=== PATIENT | female | born 1985 | race Caucasian/White ===

== ENCOUNTER 2019-04-22 14:15 | Emergency (ER) | payer SELFPAY ==
[~2019-04-22] VITALS: Ht 160 cm; Wt 59.0 kg
[~2019-04-22 14:15] MED LIST: ACET500; AMOX500 PO; Bacid1 EACH PO; Bactrim Ds Tab1 EACH PO; CALCA500CH PO; CIPR500 PO; CYCL10 PO; Colace100 MG PO; GABA300 PO; GABA400 PO; Gas-X80 MG PO; HYDACE5 PO; HYDR1TAB94 PO; IBUP800 PO; LEVE500 PO; METPRE4DP PO; MULVITMINE PO; NAPR500 PO; Naprosyn500 MG PO; Norco 10-325 T1 EACH PO; Norco 5-325 Ta1 EACH PO; ONDA4ODT MM; OXYACE5T PO; PRENATAL CAPLE1 EACH PO; PROM25 PO; Percocet 5-3251 EACH PO; RANI150; RXIBUP800 PO; Roxicodone5 MG PO; SACC250C PO; SULI150 PO; TOPI25 PO; Zofran Odt4 MG SL
[2019-04-22] MEDS ORDERED: CEPH500 PO (15:03)
[2019-04-22] MEDS ORDERED: Bactrim Ds Tab1 EACH PO (15:03)
== END 2019-04-22 15:27 | disposition home or self-care (01) ==
LOC: ER 14:15
DX: L03.115 Cellulitis of right lower limb (principal); Z79.899 Other long term (current) drug therapy; F17.210 Nicotine dependence, cigarettes, uncomplicated
CPT/HCPCS: 99282

== ENCOUNTER 2019-09-20 06:20 | Emergency (ER) | payer OTHER ==
[~2019-09-20] VITALS: Ht 160 cm; Wt 83.9 kg
[~2019-09-20 06:20] MED LIST changes: +CEPH500 PO
[2019-09-20] MEDS ORDERED: LEVE500 (07:03)
[2019-09-20] MEDS ORDERED: IBUP600 PO (08:10)
== END 2019-09-20 08:15 | disposition home or self-care (01) ==
LOC: ER 06:20
DX: G40.901 Epilepsy, unspecified, not intractable, with status epilepticus (principal); S46.012A Strain of muscle(s) and tendon(s) of the rotator cuff of left shoulder, initial encounter; F17.210 Nicotine dependence, cigarettes, uncomplicated; X50.1XXA Overexertion from prolonged static or awkward postures, initial encounter
CPT/HCPCS: 73030; 73090; 99283-25; A9270-GY

== ENCOUNTER → 2020-03-26 | Outpatient (CLI) | payer OTHER ==
[~2020-03-26] MED LIST changes: +IBUP600 PO; +LEVE500
== END | disposition home or self-care (01) ==
LOC: LAB 10:00 → LAB SHORT 10:00
DX: N30.01 Acute cystitis with hematuria (principal)
CPT/HCPCS: 87077; 87086; 87186

== ENCOUNTER 2020-05-16 14:54 | Emergency (ER) | payer OTHER ==
[~2020-05-16] VITALS: Ht 160 cm; Wt 77.1 kg
== END 2020-05-16 17:50 | disposition left against medical advice (07) ==
LOC: ER 14:54
DX: Z53.21 Procedure and treatment not carried out due to patient leaving prior to being seen by health care provider (principal)

== ENCOUNTER 2020-06-04 12:28 | Emergency (ER) | payer OTHER ==
[~2020-06-04] VITALS: Ht 160 cm; Wt 77.1 kg
[2020-06-04] MEDS ORDERED: IBUP800 PO (13:31)
[2020-06-04] MEDS ORDERED: OXYACE7.5T PO (13:31)
[2020-06-04] MEDS ORDERED: CRUTCH2 XX (13:32)
== END 2020-06-04 13:50 | disposition home or self-care (01) ==
LOC: ER 12:28
DX: S92.351A Displaced fracture of fifth metatarsal bone, right foot, initial encounter for closed fracture (principal); F17.210 Nicotine dependence, cigarettes, uncomplicated; Z79.899 Other long term (current) drug therapy; W10.9XXA Fall (on) (from) unspecified stairs and steps, initial encounter
CPT/HCPCS: 29515; 73610; 73630; 99283-25

== ENCOUNTER 2020-09-14 12:04 | Emergency (ER) | payer OTHER ==
[~2020-09-14] VITALS: Ht 160 cm; Wt 86.2 kg
[~2020-09-14 12:04] MED LIST changes: +CRUTCH2 XX; +OXYACE7.5T PO
[2020-09-14] MEDS ORDERED: IBUP400 PO (14:31)
[2020-09-14] MEDS ORDERED: HYDR1TAB94 PO (14:31)
== END 2020-09-14 14:50 | disposition home or self-care (01) ==
LOC: ER 12:04
DX: M25.561 Pain in right knee (principal)
CPT/HCPCS: 29505; 73564; 96372-59; 99283-25; J1885

== ENCOUNTER 2022-11-13 16:32 | Emergency (ER) | payer OTHER ==
[~2022-11-13] VITALS: Ht 160 cm; Wt 77.1 kg
[~2022-11-13 16:32] MED LIST changes: +IBUP400 PO
[2022-11-13 17:43] LABS: BASOPHILS ABSOLUTE AUTO 0.06 K/mm3 (0.00-0.23); BASOPHILS PERCENT AUTO 1 % (0-2); EOSINOPHILS ABSOLUTE AUTO 0.01 K/mm3 (0.00-0.68); EOSINOPHILS PERCENT AUTO 0 % (0-6); Hematocrit 42.4 % (33.0-51.0); IMMATURE GRAN ABSOLUTE AUTO 0.02 K/mm3 (0.00-0.10); IMMATURE GRAN PERCENT AUTO 0 % (0-1); LYMPHOCYTES ABSOLUTE AUTO 1.74 K/mm3 (0.84-5.20); LYMPHOCYTES PERCENT AUTO 29 % (21-46); MONOCYTES ABSOLUTE AUTO 0.33 K/mm3 (0.16-1.47); MONOCYTES PERCENT AUTO 5 % (4-13); Mean Corpuscular Volume 85 fL (80-100); Mean Platelet Volume 8.4 fL (9.1-12.4); NEUTROPHILS ABSOLUTE AUTO 3.91 K/mm3 (1.96-9.15); NEUTROPHILS PERCENT AUTO 64 % (41-73); Platelet Count 276 K/mm3 (150-400); RDW Coefficient Variation 11.9 % (11.7-14.2); RDW Standard Deviation 36.4 fL (35.1-46.3); White Blood Cell Count 6.07 K/mm3 (4.00-11.30)
[2022-11-13 18:11] LABS: Albumin, Blood 3.8 g/dL (3.4-5.0); Albumin/Globulin Ratio 0.8 (0.8-1.8); Bilirubin, Total 0.7 mg/dL (0.1-1.0); Bun/Creatinine Ratio 12.8 (12.0-20.0); Creatinine, Blood 0.78 mg/dL (0.40-1.00); Globulin, Blood 4.6 g/dL (2.2-4.0); Total Protein, Blood 8.4 g/dL (6.4-8.2)
[2022-11-13 20:58] VITALS: BP 101/71
[2022-11-13] MEDS ORDERED: AMOX500 PO (21:04)
== END 2022-11-13 21:22 | disposition home or self-care (01) ==
LOC: ER 16:32
PROVIDERS: Physician Assistant
DX: L03.211 Cellulitis of face (principal); R60.0 Localized edema; F17.210 Nicotine dependence, cigarettes, uncomplicated; Z79.899 Other long term (current) drug therapy
CPT/HCPCS: 71046; 80053; 83735; 83880; 84145; 85025; 93970; A9270

== ENCOUNTER 2024-03-18 20:16 | Inpatient (IN) | payer OTHER ==
[~2024-03-18] VITALS: Ht 160 cm; Wt 78.4 kg
[~2024-03-18 20:16] MED LIST changes: +HYDROCODONE-AC1 EA10 PO
[2024-03-19] VITALS (14 sets, daily range): BP systolic 111–133; BP diastolic 75–96
[2024-03-19] MEDS ORDERED: NS 1,000 ML IV SCH (01:50)
[2024-03-19] MEDS ORDERED: CefTRIAXone Sodium 2,000 MG in NS 50 ML IV ONE (01:50)
[2024-03-19] MEDS ORDERED: Diphth,Pertuss(Acell),Tet Vac 0.5 ML VIAL IM ONE (01:50)
[2024-03-19] MEDS ORDERED: Vancomycin HCL 1,750 MG in NS 500 ML IV ONE (01:55)
[2024-03-19] MEDS ORDERED: Ketorolac Tromethamine 30mg Vial IV ONE (02:05)
[2024-03-19] MEDS ORDERED: FentaNYL Citrate 50 MCG/ML 2 ML Injection IV PRN ×2 (02:20→03:19)
[2024-03-19 02:34] LABS: BASOPHILS ABSOLUTE AUTO 0.06 K/mm3 (0.00-0.23); BASOPHILS PERCENT AUTO 1 % (0-2); EOSINOPHILS ABSOLUTE AUTO 0.03 K/mm3 (0.00-0.68); EOSINOPHILS PERCENT AUTO 0 % (0-6); Hematocrit 34.2 % (33.0-51.0); Hemoglobin 11.5 g/dL (11.5-16.0); IMMATURE GRAN ABSOLUTE AUTO 0.06 K/mm3 (0.00-0.10); IMMATURE GRAN PERCENT AUTO 1 % (0-1); LYMPHOCYTES PERCENT AUTO 37 % (21-46); MONOCYTES ABSOLUTE AUTO 0.48 K/mm3 (0.16-1.47); MONOCYTES PERCENT AUTO 7 % (4-13); Mean Corpuscular HGB 29.5 pg (26.0-34.0); Mean Corpuscular HGB Conc 33.6 g/dL (31.5-36.5); Mean Corpuscular Volume 88 fL (80-100); NEUTROPHILS PERCENT AUTO 54 % (41-73); RDW Standard Deviation 41.8 fL (35.1-46.3); White Blood Cell Count 7.03 K/mm3 (4.00-11.30)
[2024-03-19 02:37] LABS: Albumin, Blood 2.8 g/dL (3.4-5.0); Albumin/Globulin Ratio 0.6 (0.8-1.8); Bilirubin, Total 0.3 mg/dL (0.1-1.0); Bun/Creatinine Ratio 20.5 (12.0-20.0); Calcium, Blood 8.9 mg/dL (8.5-10.1); Creatinine, Blood 0.54 mg/dL (0.40-1.00); Globulin, Blood 4.6 g/dL (2.2-4.0); Potassium, Blood 4.2 mmol/L (3.5-5.5); Total Protein, Blood 7.4 g/dL (6.4-8.2)
[2024-03-19 02:44] LABS: Platelet Count 333 K/mm3 (150-400)
[2024-03-19] MEDS ORDERED: Magnesium Hydroxide Conc 10 ML UDC PO PRN (03:30)
[2024-03-19] MEDS ORDERED: Acetaminophen 325 MG TABLET PO PRN (03:30)
[2024-03-19] MEDS ORDERED: Bisacodyl 10 MG Supp PR PRN (03:30)
[2024-03-19] MEDS ORDERED: FLU VACC TS2024-25(6MOS UP)/PF 45 MCG/0.5 ML SYRINGE IM ONE (03:30)
--- NOTE | 2024-03-19 05:26 | NUR ---
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 PATIENT COMPLAINED OF PAIN TO RIGHT MIDDLE FINGER DUE TO CELLULITIS. PATIENT LAST DRINK AT 0400 WHEN SHE WAS IN THE ER. PATIENT IS CURRENTLY NPO.
[2024-03-19] MEDS ORDERED: Lactobacil 2-S.Thermo-Bifido 1 1 Cap PO SCH (09:00)
[2024-03-19] MEDS ORDERED: CefTRIAXone Sodium 1,000 MG in NS 100 ML IV SCH (09:00)
[2024-03-19] MEDS ORDERED: Enoxaparin 40 MG/0.4 ML SYR SC SCH (09:00)
[2024-03-19] MEDS ORDERED: Sennosides 8.6 MG Tab PO SCH (09:00)
[2024-03-19] MEDS ORDERED: Docusate Sodium 100 MG Cap PO SCH (09:00)
[2024-03-19] MEDS ORDERED: NS 250 ML IV PRN (09:25)
[2024-03-19] MEDS ORDERED: Lactated Ringer's 1,000 ML IV SCH ×2 (10:00→13:20)
[2024-03-19] MEDS ORDERED: Vancomycin HCL 1,000 MG in NS 250 ML IV SCH (11:00)
[2024-03-19] MEDS ORDERED: Nicotine 21 MG PATCH TOP SCH (13:00)
[2024-03-19] MEDS ORDERED: Bupivacaine 0.5% HCl 5 MG/ML 30MLVIAL ONE (13:22)
[2024-03-19] MEDS ORDERED: EpiNEPhrine 1 MG/1 ML 1ML Vial ONE (13:22)
--- NOTE | 2024-03-19 13:30 | NUR ---
PT TAKEN TO SURGERY A/OX4 UP WITH MINIMAL ASSIST
[2024-03-19] MEDS ORDERED: propofoL 20 ML IV ONE (13:50)
[2024-03-19] MEDS ORDERED: Midazolam HCl 1MG / ML 2ML Vial ONE (13:52)
[2024-03-19] MEDS ORDERED: FentaNYL Citrate 50 MCG/ML 2 ML Injection ONE ×2 (14:02→14:06)
[2024-03-19] MEDS ORDERED: Ketorolac Tromethamine 30mg Vial ONE (14:03)
[2024-03-19] MEDS ORDERED: Dexamethasone Sod Phos 10 MG/ML 1ML VIAL ONE (14:06)
[2024-03-19] MEDS ORDERED: Ondansetron HCl 2 MG / ML 2ML Vial ONE (14:06)
--- NOTE | 2024-03-19 14:36 | NUR ---
03/19/24 1436 SERA KING 10ML OF BUPIVACAINE 0.5% W/EPI 1:200,000 WAS INJECTED AT [address] COLLIER TO [facility].
[2024-03-19] MEDS ORDERED: HYDROmorphone HCl/Pf 1MG SYR ONE (14:51)
--- NOTE | 2024-03-19 16:39 | NUR ---
PT HAD IND DONE TO R MIDDLE FINGER BY DR COLLIER. PRIOR TO PT GOING TO SURGERY FOUND LEG WOUND BELOW KNEE ON R LEG. DR COLLIER CLEANED THIS WOUND WELL. PT ARRIVED TO ROOM DROWSY, BUT ABLE TO BE AROUSED AND HAS BEEN SLEEPING SOUNDLY. PT WAS ABLE TO STAND AND TRANSFER TO BED FROM CART. CALL LIGHT IS IN REACH WILL CONTINUE TO MONITOR.
[2024-03-19] MEDS ORDERED: HyDROXyzine HCl 25 MG Tab PO PRN (18:45)
[2024-03-20 02:10] LABS: BASOPHILS ABSOLUTE AUTO 0.01 K/mm3 (0.00-0.23); BASOPHILS PERCENT AUTO 0 % (0-2); EOSINOPHILS PERCENT AUTO 0 % (0-6); Hematocrit 33.1 % (33.0-51.0); Hemoglobin 11.2 g/dL (11.5-16.0); IMMATURE GRAN ABSOLUTE AUTO 0.01 K/mm3 (0.00-0.10); IMMATURE GRAN PERCENT AUTO 0 % (0-1); LYMPHOCYTES PERCENT AUTO 15 % (21-46); MONOCYTES ABSOLUTE AUTO 0.11 K/mm3 (0.16-1.47); MONOCYTES PERCENT AUTO 2 % (4-13); Mean Corpuscular HGB 29.9 pg (26.0-34.0); Mean Corpuscular HGB Conc 33.8 g/dL (31.5-36.5); Mean Corpuscular Volume 88 fL (80-100); Mean Platelet Volume 8.8 fL (9.1-12.4); NEUTROPHILS ABSOLUTE AUTO 5.48 K/mm3 (1.96-9.15); NEUTROPHILS PERCENT AUTO 83 % (41-73); Platelet Count 342 K/mm3 (150-400); RDW Coefficient Variation 12.3 % (11.7-14.2); RDW Standard Deviation 39.9 fL (35.1-46.3); Red Blood Cell Count 3.75 M/mm3 (3.80-5.20); White Blood Cell Count 6.61 K/mm3 (4.00-11.30)
[2024-03-20 02:16] LABS: Anion Gap 12 mmol/L (3-11); Blood Urea Nitrogen 9 mg/dL (8-24); Bun/Creatinine Ratio 15.4 (12.0-20.0); CO2, Blood 23 mmol/L (21-32); Calcium, Blood 8.6 mg/dL (8.5-10.1); Chloride, Blood 110 mmol/L (98-108); Creatinine, Blood 0.59 mg/dL (0.40-1.00); Glomerular Filtration Rate 118 (60-); Glucose, Blood 172 mg/dL (70-99); Potassium, Blood 4.3 mmol/L (3.5-5.5); Sodium, Blood 141 mmol/L (136-145); Vancomycin, Trough 16.4 ug/mL (5.0-10.0)
[2024-03-20 02:55] VITALS: BP 110/70
[2024-03-20 07:34] VITALS: BP 111/77
[2024-03-20] MEDS ORDERED: Vancomycin HCL 1,000 MG in NS 250 ML IV SCH (12:00)
[2024-03-20] MEDS ORDERED: LORazepam 1 MG Tab PO PRN (12:15)
--- NOTE | 2024-03-20 13:17 | NUR ---
PEFORMED WOUND CHANGE ON PT WITH JAZZ BARRIOS, BOTH RIGHT LEG AND RIGHT MIDDLE FINGER. PRIOR ADMINISTERED FENTANYL AND TYLENOL, PT REPORTS DID VERY LITTLE. CALLED MD ABOUT EVENT AND ASKED FOR ORDER OF TORADOL IV, WHICH MD WOULD PLACE.
[2024-03-20] MEDS ORDERED: Ketorolac Tromethamine 15mg Vial IV PRN (13:25)
[2024-03-20] MEDS ORDERED: TraMADol HCl 50 MG Tab PO PRN (14:40)
[2024-03-20 15:56] VITALS: BP 116/74
[2024-03-20] MEDS ORDERED: INCASSIA0.35 MG PO (16:30)
--- NOTE | 2024-03-20 18:37 | NUR ---
SHIFT SUMMARY PT A&0X4, COOPERATIVE, MAKES NEEDS KNOWN. SLEEPING MOST OF THE DAY, PAIN RELIEF USING TRAMADOL INSTEAD OF FENTANYL AND TYLENOL. WOUND CHANGE TODAY, PATIENT DID NOT TOLERATE. PT CRIED AND GROANED DUE TO DRESSING CHANGE, MEDICATED PRIOR TO WOUND CARE. WENT OUT WITH FAMILY WITHOUT NOTIFYING RN OR BRAKE DRUM MOLDER, INFORMED TO AT LEAST LET CHARGE NURSE AT THE STAKING ENGINEER KNOW WHEN SHE IS GOING SOMEWHERE. BED IN LOWEST POSITION, CALL LIGHT WITHIN REACH.
[2024-03-20 19:22] VITALS: BP 117/65
--- NOTE | 2024-03-20 23:23 | NUR ---
PATIENT APPEARS TO BE SLEEPING COMFORTABLY. DOES NOT APPEAR TO BE IN ANY DISTRESS.
[2024-03-21 03:39] VITALS: BP 137/96
--- NOTE | 2024-03-21 04:15 | NUR ---
THIS RN WENT INTO PATIENT'S ROOM TO ADMINISTER IV ANTIBIOTIC AND NOTICED THAT THERE WAS A STRONG SMELL OF MARIJUANA COMING FROM THE ROOM. THIS RN INFORMED TREVOR MANLEY RN OF THIS. AT THAT TIME, TREVOR BARRIOS, WENT TO THE ROOM AND ALSO NOTICED THERE WAS AN ODOR, AND ASKED THE PATIENT IF SHE WAS SMOKING. THE PATIENT HAD BEEN IN AND OUT OF HER ROOM ALL EVENING, SO HE ASKED IF SHE HAD A LEGAL DEPARTMENT MANAGER, WHICH SHE DID. TREVOR BARRIOS TOOK THE LEGAL DEPARTMENT MANAGER AND LOCKED IT IN THE PATIENT'S DRAWER AT THAT TIME.
--- NOTE | 2024-03-21 05:22 | NUR ---
SHIFT SUMMARY PATIENT IS ALERT AND ORIENTED TO ALL. FULL CODE. PATIENT IS COOPERATIVE WITH CARE. INDEPENDENT IN THE ROOM. PATIENT HAS BEEN DILIGENT ABOUT KEEPING HER ARM ELEVATED TO RELIEVE SOME OF THE SWELLING. THIS RN WILL RELAY ALL INFORMATION TO ONCOMING NURSE. NO ACUTE CHANGES THIS SHIFT.
[2024-03-21 05:57] LABS: Hematocrit 32.8 % (33.0-51.0); Hemoglobin 10.6 g/dL (11.5-16.0); Mean Corpuscular HGB 29.1 pg (26.0-34.0); Mean Corpuscular HGB Conc 32.3 g/dL (31.5-36.5); Mean Corpuscular Volume 90 fL (80-100); Mean Platelet Volume 8.7 fL (9.1-12.4); Platelet Count 304 K/mm3 (150-400); RDW Coefficient Variation 12.6 % (11.7-14.2); RDW Standard Deviation 41.6 fL (35.1-46.3); Red Blood Cell Count 3.64 M/mm3 (3.80-5.20); White Blood Cell Count 5.44 K/mm3 (4.00-11.30)
[2024-03-21 06:18] LABS: Calcium, Blood 8.2 mg/dL (8.5-10.1); Creatinine, Blood 0.64 mg/dL (0.40-1.00); Potassium, Blood 3.5 mmol/L (3.5-5.5)
[2024-03-21 06:26] LABS: BASOPHILS PERCENT MAN 0 % (0-2); EOSINOPHILS PERCENT MAN 0 % (0-6); LYMPHOCYTES % ATYPICAL MANUAL 1 % (0-0); LYMPHOCYTES ABSOLUTE MAN 2.72 K/mm3 (0.84-5.20); LYMPHOCYTES PERCENT MAN 49 % (21-46); MONOCYTES ABSOLUTE MAN 0.38 K/mm3 (0.16-1.47); MONOCYTES PERCENT MAN 7 % (4-13); NEUTROPHILS ABSOLUTE MAN 2.33 K/mm3 (1.96-9.15); SEG NEUTROPHILS PERCENT MAN 43 % (41-73); TOTAL CELLS COUNTED 100
[2024-03-21 07:29] VITALS: BP 117/81
[2024-03-21] MEDS ORDERED: OxyCODONE 10/Acetamin 325 TABLET PO PRN (13:20)
[2024-03-21 15:08] VITALS: BP 139/103
--- NOTE | 2024-03-21 18:12 | NUR ---
SHIFT SUMMARY A&OX4, COOPERATIVE WITH PROCEDURES, ABLE TO MAKE NEEDS KNOWN. PERFORMED WOUND CARE TODAY, PT TOLERATED WELL. PT AMBULATING TO SHOWER AND DOWN TO CAFETERIA TODAY. ALL DAY, PT EXPRESSED PAIN A 7 (10 BEING THE WORSE) MEDICATED PER EMAR, UPON REASSESSMENT, PT REPORTS PAIN RELIEF OF 6. DC PAPERWORK CAME IN, WILL INFORM NEXT SHIFT. CALL LIGHT WITHIN REACH.
[2024-03-21] MEDS ORDERED: HYDHCL25 PO (18:45)
[2024-03-21] MEDS ORDERED: NICO21TP TOP (18:46)
[2024-03-21] MEDS ORDERED: SENNA LAXATIVE8.6 MG PO (18:47)
[2024-03-21] MEDS ORDERED: Percocet 10-321 EACH PO (18:47)
[2024-03-21] MEDS ORDERED: BACTRIM DS TAB1 EAC6 PO (18:48)
[2024-03-21] MEDS ORDERED: LACT PO (18:49)
--- NOTE | 2024-03-21 22:49 | NUR ---
PATIENT WAS DISCHARGED AT APPROXIMATELY 2049. PATIENT RECIEVED LAST DOSE OF ANTIBIOTICS PRIOR TO DISCHARGE. IV WAS REMOVED. PAIN PILL WAS GIVEN PER CHARGE NURSE PRIOR TO THE PATIENT LEAVING. PATIENT WAS PICKED UP BY FAMILY.
== END 2024-03-21 21:00 | disposition home or self-care (01) | DRG 513 ==
LOC: ER 20:16 → MEDS 03-19 03:25
PROVIDERS: Emergency Medicine; Family Medicine; Orthopaedic Surgery Sports Medicine; Student in an Organized Health Care Education/Training Program; ADMIT Student in an Organized Health Care Education/Training Program
PROC: 0JBJ0ZZ Excision of Right Hand Subcutaneous Tissue and Fascia, Open Approach (ICD-10-PCS; principal; 2024-03-19 13:30)
DX: M65.841 Other synovitis and tenosynovitis, right hand (principal); I96 Gangrene, not elsewhere classified; M79.7 Fibromyalgia; F17.210 Nicotine dependence, cigarettes, uncomplicated; E86.0 Dehydration
CPT/HCPCS: 36415; 73140; 80048; 80053; 80202; 83605; 85025; 87070; 87075; 87077; 87147; 87186; 87205; 90715; 94760; 96365; 96367; 96375; 99284-25; A9270; J0171; J0696; J1100; J1170; J1885; J2250; J2405; J2704; J3010; J3370; J7030; J7040; J7050; J7120

== ENCOUNTER 2024-06-23 00:35 | Emergency (ER) | payer OTHER ==
[~2024-06-23] VITALS: Ht 154.9 cm; Wt 72.6 kg
[~2024-06-23 00:35] MED LIST changes: +BACTRIM DS TAB1 EAC6 PO; +HYDHCL25 PO; +INCASSIA0.35 MG PO; +LACT PO; +NICO21TP TOP; +Percocet 10-321 EACH PO; +SENNA LAXATIVE8.6 MG PO
[2024-06-23 00:37] VITALS: BP 141/96
[2024-06-23] MEDS ORDERED: RX Prepack 2 Sprays Naloxone HCL 4 MG/SPRAY UD ONE (02:45)
== END 2024-06-23 02:52 | disposition home or self-care (01) ==
LOC: ER 00:35
DX: T40.411A Poisoning by fentanyl or fentanyl analogs, accidental (unintentional), initial encounter (principal); R40.4 Transient alteration of awareness; R40.0 Somnolence; F17.210 Nicotine dependence, cigarettes, uncomplicated; Z79.899 Other long term (current) drug therapy; Z59.89 Other problems related to housing and economic circumstances
CPT/HCPCS: 99284; A9270

== ENCOUNTER 2024-07-10 17:55 | Emergency (ER) | payer OTHER ==
[~2024-07-10] VITALS: Ht 160 cm; Wt 77.1 kg
[2024-07-10 19:33] LABS: BASOPHILS ABSOLUTE AUTO 0.08 K/mm3 (0.00-0.23); BASOPHILS PERCENT AUTO 1 % (0-2); EOSINOPHILS ABSOLUTE AUTO 0.03 K/mm3 (0.00-0.68); EOSINOPHILS PERCENT AUTO 0 % (0-6); Hematocrit 38.4 % (33.0-51.0); Hemoglobin 12.8 g/dL (11.5-16.0); IMMATURE GRAN ABSOLUTE AUTO 0.03 K/mm3 (0.00-0.10); IMMATURE GRAN PERCENT AUTO 0 % (0-1); LYMPHOCYTES ABSOLUTE AUTO 2.63 K/mm3 (0.84-5.20); LYMPHOCYTES PERCENT AUTO 29 % (21-46); MONOCYTES ABSOLUTE AUTO 0.43 K/mm3 (0.16-1.47); MONOCYTES PERCENT AUTO 5 % (4-13); Mean Corpuscular HGB 29.3 pg (26.0-34.0); Mean Corpuscular HGB Conc 33.3 g/dL (31.5-36.5); Mean Corpuscular Volume 88 fL (80-100); Mean Platelet Volume 8.3 fL (9.1-12.4); NEUTROPHILS ABSOLUTE AUTO 5.89 K/mm3 (1.96-9.15); NEUTROPHILS PERCENT AUTO 65 % (41-73); Platelet Count 373 K/mm3 (150-400); RDW Coefficient Variation 12.7 % (11.7-14.2); Red Blood Cell Count 4.37 M/mm3 (3.80-5.20); White Blood Cell Count 9.09 K/mm3 (4.00-11.30)
[2024-07-10 20:08] LABS: CORONAVIRUS COVID-19 AG Negative (NEGATIVE); INFLUENZA A AG Negative (NEGATIVE); INFLUENZA B AG Negative (NEGATIVE)
[2024-07-10 20:10] LABS: Albumin, Blood 2.9 g/dL (3.4-5.0); Albumin/Globulin Ratio 0.7 (0.8-1.8); Bilirubin, Total 0.1 mg/dL (0.1-1.0); Bun/Creatinine Ratio 10.3 (12.0-20.0); Calcium, Blood 8.9 mg/dL (8.5-10.1); Creatinine, Blood 0.68 mg/dL (0.40-1.00); Globulin, Blood 4.3 g/dL (2.2-4.0); Potassium, Blood 3.8 mmol/L (3.5-5.5); Total Protein, Blood 7.2 g/dL (6.4-8.2)
[2024-07-10 20:53] VITALS: BP 112/76
[2024-07-10] MEDS ORDERED: Trimethoprim/Sulfamethoxazole DS Tab PO ONE (23:35)
[2024-07-10] MEDS ORDERED: BACTRIM DS TAB1 EAC6 PO (23:43)
== END 2024-07-11 00:10 | disposition home or self-care (01) ==
LOC: ER 17:55
PROVIDERS: Physician Assistant
DX: L03.113 Cellulitis of right upper limb (principal); M25.531 Pain in right wrist; L53.8 Other specified erythematous conditions; R00.0 Tachycardia, unspecified; F17.210 Nicotine dependence, cigarettes, uncomplicated; Z79.3 Long term (current) use of hormonal contraceptives; Z79.899 Other long term (current) drug therapy; Z79.52 Long term (current) use of systemic steroids; Z79.2 Long term (current) use of antibiotics
CPT/HCPCS: 36415; 73110; 80053; 83605; 85025; 87428-QW; 99284-25; A9270